=== PATIENT | male | born 1975 | race Caucasian/White ===

== ENCOUNTER → 2020-12-10 11:10 | Outpatient (BNVA) | payer OTHER, SELFPAY | PROVIDERS: PCP Family Medicine; Referring Provider Family Medicine; Visit Provider Orthopaedic Surgery | DX: M54.2 Cervicalgia (principal) | CPT/HCPCS: 72050 ==

== ENCOUNTER → 2021-01-21 12:37 | Outpatient (BNVA) | payer OTHER, SELFPAY | PROVIDERS: PCP Family Medicine; Visit Provider Orthopaedic Surgery | DX: Z01.812 Encounter for preprocedural laboratory examination (principal); Z20.822 Contact with and (suspected) exposure to COVID-19 | CPT/HCPCS: 87635 ==

== ENCOUNTER 2021-01-26 05:53 | Day surgery (SDC) | payer OTHER, SELFPAY ==
--- NOTE | 2021-01-21 13:19 | ANES.PREANE2 ---
Pre-Anesthetic Assessment Pre-Anesthetic Assessment: Height/Weight: Height 1.8 m Weight 74.843 kg Preop Diagnosis: cervical spondylosis with myelopathy Proposed Procedure: Operation Date: 01/26/21 07:00 Proposed Procedures p Anterior Cervical Discectomy & Fusion C5/6 C6/7 M47.12 [id number](Not Applicable) - Yan H Martha, DO Was Beta Sandra taken within 24 hours: N/A Was Clonidine taken within 24 hours: N/A Social: Social History: Tobacco and No alcohol Exam: Pre-Anes Outpt Exam: alert, oriented x 3, clear to auscultation bilaterally and regular rate & rhythm Airway: Submandibular: WNL Cervical ROM: WNL MP: 2 Dentition: False Pulmonary: Pulmonary: COPD Neuropsych: Neuropsych: Anxiety Comments: Chronic pain, BUE pain, claustrophobia Anesthetic Plan: ASA status: 3 Risk of > 500 ml blood loss (7ml/kg in children): No PFSH Anesthesia PFSH: Social History Smoking and tobacco status: current every day smoker cigarettes Packs smoked per day: 1 Alcohol intake: current Alcohol intake frequency: 3 or more drinks per day Alcohol type: beer Data Anesthesia Cardiac Studies: No Data to Display
[2021-01-26] VITALS (8 sets, daily range): BP systolic 104–120; BP diastolic 58–81; PULSE 63–76; RESP 12–19; TEMP 36.3–36.8; O2SAT 94–99
--- NOTE | 2021-01-26 | XR_ITS ---
WS: [id number] Exam: XR cervical spine 3V* [id number] Date/Time of Exam: 01/26/2021 12:00 AM Reason For Exam: acdf Intraoperative C-arm images of the cervical spine in the AP and lateral projections are submitted for evaluation. An endotracheal tube is noted in the airway and ends at about the level of the T2-T3 disc. There is a nterior plate and screw fixation of the cervical spine from C5 to C7 appearing to be in good alignmen t. There are disc spacers at C5-6 and C6-7. XR/XR cervical spine 3V* [id number] IMPRESSION: 1. Anterior cervical fusion from C5-C7. The fusion appears to be satisfactory alignment.
--- NOTE | 2021-01-26 | SCC_ITS ---
Procedure Done: 1. Anterior diskectomy C5/6 2. Anterior discectomy C6/7 3. Insertion of cage C5/6 4. Insertion of Cage C6/7 5. Instrumentation with anterior plate from C5-C7 6. Use of allograft 16.2 seconds of fluoroscopic guidance, for a cumulative dose of 0.92 mGy, was provided to Dr. Thomas by the radiology department. C-arm images of the cervical spine were saved for the patient's permanent record. GERALDD
--- NOTE | 2021-01-26 06:34 | P.HP_ITS ---
Providers/Chief Complaint Primary Care Provider: Shahnaz Harper MD Chief Complaint: Cervical sponylosis with myelopahty History of Present Illness Gatito Cook is a 45 year old male here for evaluation of neck pain with no known injury. He describes worsening changes to his balance and decrease in ability to dress his self. He has tried over the counter pain medication with no releif. Chief Complaint: neck injury Onset: 1 year ago Duration: 1 year Characteristics: popping, ache Severity: 9/10 Location: neck Radiating symptoms: bilateral arms, left middle finger Aggravating factors: rest, nights, turning head, quick movements Alleviating factors: movement, sleep in recliner Neuro deficits: denies incontinence of bowel/bladder, saddle anesthesia. Prior tx: physical therapy Review of Systems Narrative: General: Reports: 10 or more systems reviewed and unremarkable except as noted in History and below Const: Denies: fever(s) or chills Eyes: Denies: change in vision ENMT: Denies: throat pain Card: Denies: chest pain or dyspnea on exertion Resp: Denies: dyspnea, productive cough or wheezing GI: Denies: abdominal pain, nausea or vomiting Musc: Reports: limited range of motion Skin/Breast: Denies: changes in skin color or dry skin Neuro: Reports: numbness in extremities and weakness in extremities Psych: Denies: anxiety Quan/Lymph: Denies: easy bruising or easy bleeding Medications/Allergies Home Medications Medication Instructions Recorded Confirmed Last Taken Type meloxicam 7.5 mg tablet 7.5 mg PO DAILY 12/10/20 01/26/21 01/25/21 History [id number] Bone Growth Stimulator #1 ea 01/10/21 01/21/21 Unknown Rx multivitamin 1 tab PO DAILY 01/21/21 01/26/21 01/25/21 History sertraline 25 mg PO DAILY 01/21/21 01/26/21 01/25/21 History Allergies Allergy/AdvReac Type Severity Reaction Status Date / Time No Known Allergies Allergy Verified 12/10/20 11:18 PFSH Acute PFSH: Social History Smoking and tobacco status: current every day smoker cigarettes Packs smoked per day: 1 Alcohol intake: current Alcohol intake frequency: 3 or more drinks per day Alcohol type: beer Vitals/I&O/Wt Last Vital Signs Temp 98.3 F 01/26/21 06:10 Pulse 66 01/26/21 06:10 Resp 18 01/26/21 06:10 BP 119/81 01/26/21 06:10 Pulse Ox 98 01/26/21 06:10 Physical Exam Narrative: EXAM NARRATIVE: EXAM NARRATIVE: CONSTITUTIONAL: The patient is normal appearing, well groomed, cooperative and in no apparent distress. GENERAL: Patient in no acute distress. Well nourished. CARDIAC: Regular rate and rhythm. CHEST: Normal inspiratory effort, normal respiratory rate. ABDOMEN: Soft and non-tender. SKIN: Clear, warm and intact. NEURO?PSYCH: The patient is alert and oriented to person, place and time. NEUROVASCULAR: Upper Extremity Sensory - SILT. Motor Strength: Shoulder abduction C5: 5/5; Wrist extension C6: 5/5; Elbow extension C7: 5/5; Hand Master Motorcycle Technician C8: 5/5; Finger abduction T1: 5/5. Radial/ Ulnar/ Median in intact Lower Extremity Sensory - SILT. Motor Strength: Hip flexion L2/3; Ant/inner thigh: 5/5; Hip adduction L2/3: 5/5; Knee extension L4 Lat thigh: 5/5; Toe dorsiflexion L5: 5/5; Ankle dorsiflexion L5/ S1: 5/5; Plantar flexion S1: 5/5. DTR: Triceps 2+; Brachioradialis 2+; Patellar 2+; Achilles 2+. MUSCULOSKELETAL: UPPER EXTREMITIES: The patient had full active ROM in fingers, wrist, elbow, and shoulder. The patient demonstrated ability to fully flex/extend/abduct/adduct fingers, make ok sign, cross 2nd/3rd digits, extend 1st digit fully.. Radial pulse 2+, CR<2 seconds. LOWER EXTREMITIES: Pt has full, active ROM of toes, ankle, knee, and hip. Dorsalis pedis & posterior tibialis pulses 2+, CR<2 seconds. SPINE: Skin warm, dry, intact. A&P Assessment and plan (1) Cervical spondylosis with myelopathy: Cervical ACDF to decompresss the spinal cord Status: Acute Attestations Medical Necessity Statement*: progressive myelopathy Coding Level of Care Code Acute Jewel Sawyer for [facility] Diagnoses Cervical spondylosis with myelopathy M47.12
[2021-01-26] MEDS: sodium chloride 0.9% 1,000 ML 30 ML IV (06:37)
[2021-01-26] MEDS: thrombin 5,000 unit SDV 5000 UNIT XX (08:00)
--- NOTE | 2021-01-26 08:05 | SUR.OPER ---
family updated of surgical status
--- NOTE | 2021-01-26 08:57 | SUR.OPER ---
attempted to contact family, went straight to voicemail.
--- NOTE | 2021-01-26 09:26 | P.PCN_ITS ---
PACU note PACU note: VSS, Good respiratory effort, report to DIETITIAN CHIEF Post-Anesthesia Exam: somnolent, arousable and vital signs stable
--- NOTE | 2021-01-26 09:26 | PM.PACU ---
PACU note PACU note: VSS, Good respiratory effort, report to ONCOLOGY SPECIALIST Post-Anesthesia Exam: somnolent, arousable and vital signs stable
--- NOTE | 2021-01-26 09:30 | PM.OP ---
Operative Report Date of procedure: January 26, 2021 Pre-op Diagnosis: cervical spondylosis with myelopathy Post-op diagnosis: same Procedure Done: 1. Anterior diskectomy C5/6 2. Anterior discectomy C6/7 3. Insertion of cage C5/6 4. Insertion of Cage C6/7 5. Instrumentation with anterior plate from C5-C7 6. Use of allograft Surgeon: Yan Thomas Anesthesia: General Estimated blood loss (mL): 25 Condition: stable Disposition: PACU Procedure: The patient was taken to the operating room, where he underwent general endotracheal anesthesia without complications. He was then positioned supine on the operating table, and all areas of impingement were well padded. The arms were carefully padded and tucked at his sides. A roll was placed between the shoulder blades.. An x-ray was done to determine the appropriate level for the skin incision. The entire neck was then sterilely prepped and draped in the usual fashion. Neuromonitoring was attached prior to prepping. A transverse skin incision was made and carried down to the platysma muscle. This was then split in line with its fibers. Blunt dissection was carried down medial to the carotid sheath and lateral to the trachea and esophagus until the anterior cervical spine was visualized. A needle was placed into a disc and an x-ray was done to determine its location. The longus colli muscles were then elevated bilaterally with the electrocautery unit. Self-retaining retractors were placed deep to the longus colli muscle. Attention was brought to the C5/6/7 level that was confirmed on x-ray. A The microscope was then brought in. A radical anterior discectomies were performed at C5/6. This included complete removal of the anterior annulus, nucleus, and posterior annulus. The posterior longitudinal ligament was removed as were the posterior osteophytes. Foraminotomies were then accomplished bilaterally. This was done using a high speed marky, kerrison rongeurs and curretes Once all of this was accomplished, the curved currette was used to check for any residual compression. The central canal was wide open as were the foramen. A high-speed bur was used to remove the cartilaginous endplates above and below the interspace. Bleeding cancellous bone was exposed. The disc space were measured and appropriate size cage were placed sterilely onto the field. Allograft graft was packed into the cages. The cage was then placed and there was good juxtaposition against the bleeding decorticated surfaces and good distraction of each interspace. Attention was brought to the next interspace. A radical anterior discectomies were performed at C6/7. This included complete removal of the anterior annulus, nucleus, and posterior annulus. The posterior longitudinal ligament was removed as were the posterior osteophytes. Foraminotomies were then accomplished bilaterally. This was done using a high speed marky, kerrison rongeurs and curretes Once all of this was accomplished, the curved currette was used to check for any residual compression. The central canal was wide open as were the foramen. A high-speed bur was used to remove the cartilaginous endplates above and below the interspace. Bleeding cancellous bone was exposed. The disc space were measured and appropriate size cage were placed sterilely onto the field. Allograft graft was packed into the cages. The cage was then placed and there was good juxtaposition against the bleeding decorticated surfaces and good distraction of each interspace. Attention was brought to the next interspace. The appropriate size anterior cervical locking plate was chosen and bent into gentle lordosis. Two screws were then placed into each of the vertebral bodies at C5, C6 and C7. There was excellent purchase. A final x-ray was done confirming good position of the hardware and Cages. The locking screws were then applied, also with excellent purchase. Following a final copious irrigation, there was good hemostasis and no dural leaks. The carotid pulse was strong. The wounds were then closed in layers using 2-0 Vicryl suture for the platysma muscle, 2-0 Vicryl suture for the subcutaneous tissue, and 4-0 monocryl suture in a subcuticular skin closure. Glue was placed followed by application of a sterile dressing. The drain was hooked to bulb suction. A soft collar was applied. The patient was then carefully returned to the supine position on his hospital bed where he was reversed and extubated and taken to the recovery room having tolerated the procedure well.
--- NOTE | 2021-01-26 09:34 | SUR.PHASEI ---
PT ON RA PT WITH SOFT COLLAR IN PLACE PT RESTLESS, MOVES ALL EXT PT ENCOURAGED TO RELAX NOT TO TWIST NECK OR SHOULDERS. VSS PT DENIES PAIN,
--- NOTE | 2021-01-26 09:51 | SUR.PHASEI ---
0979 PT AWAKE ALERT REQUEST APPLE JUICE AND FOOD, PT MOVES ALL EXT TO COMMAND, NECK DRESSING D/I SOFT COLLAR IN PLACE.
[2021-01-26] MEDS: HYDROcodone-acetaminophen 5-325 mg Tablet 1 TAB PO (10:24)
--- NOTE | 2021-01-26 20:22 | ANE.PACU2 ---
Inpatient post-anesthesia follow up: Airway intact: Yes Vital signs: Temperature 97.4 F Pulse Rate 63 Respiratory Rate 18 Blood Pressure 112/64 Pulse Oximetry 96 Oxygen Delivery Me thod Room Air Oxygen Flow Rate 8 Fraction of Inspir ed Oxygen Hydration adequate: Yes Nausea and vomiting: No Pain level: 4 Mental status: Baseline
== END 2021-01-26 10:55 | disposition home or self-care (01) ==
PROVIDERS: PCP Family Medicine; Visit Provider Orthopaedic Surgery
PROC: 0RB30ZZ Excision of Cervical Vertebral Disc, Open Approach (ICD-10-PCS; CPT 22551; principal; 2021-01-26 07:00)
DX: M47.12 Other spondylosis with myelopathy, cervical region (principal); F17.210 Nicotine dependence, cigarettes, uncomplicated; J44.9 Chronic obstructive pulmonary disease, unspecified; F41.9 Anxiety disorder, unspecified
CPT/HCPCS: 20930; 22551; 22552; 22845; 22853; 72040; 76000; 96365; 97760; C1713; C9359; J0330; J0690; J1100; J2250; J2405; J2704; J3010; J3490; J7030; L0174

== ENCOUNTER → 2021-03-10 08:53 | Outpatient (BNVA) | payer OTHER, SELFPAY | PROVIDERS: PCP Family Medicine; Visit Provider Orthopaedic Surgery | DX: Z48.89 Encounter for other specified surgical aftercare (principal); Z98.1 Arthrodesis status | CPT/HCPCS: 72040 ==

== ENCOUNTER → 2021-04-21 10:31 | Outpatient (BNVA) | payer OTHER, SELFPAY | PROVIDERS: PCP Family Medicine; Visit Provider Orthopaedic Surgery | DX: Z47.89 Encounter for other orthopedic aftercare (principal); Z98.1 Arthrodesis status | CPT/HCPCS: 72040 ==

== ENCOUNTER → 2021-09-13 08:52 | Outpatient (BNVA) | payer OTHER, SELFPAY | PROVIDERS: PCP Family Medicine; Visit Provider Orthopaedic Surgery | DX: Z47.89 Encounter for other orthopedic aftercare (principal); M54.2 Cervicalgia; Z98.1 Arthrodesis status | CPT/HCPCS: 72040 ==